=== PATIENT | male | born 1995 | race African-American/Black ===

== ENCOUNTER 2021-01-31 21:23 | Emergency (ER) | payer OTHER ==
[~2021-01-31] VITALS: Ht 195.6 cm; Wt 76.7 kg
[2021-01-31] MEDS ORDERED: CEPHALEXIN500 MG PO (22:40)
[2021-01-31] MEDS ORDERED: ZANAFLEX4 MG PO (22:40)
[2021-01-31] MEDS ORDERED: MOBIC7.5 MG PO (22:40)
[2021-01-31 23:10] VITALS: BP 144/88
== END 2021-01-31 23:10 | disposition home or self-care (01) ==
LOC: ER 21:23
DX: S01.81XA Laceration without foreign body of other part of head, initial encounter (principal); V49.49XA Driver injured in collision with other motor vehicles in traffic accident, initial encounter; Y93.89 Activity, other specified; Y92.89 Other specified places as the place of occurrence of the external cause; Y99.8 Other external cause status

== ENCOUNTER 2021-02-01 21:58 | Emergency (ER) | payer OTHER ==
[~2021-02-01] VITALS: Ht 195.6 cm; Wt 76.7 kg
[~2021-02-01 21:58] MED LIST: CEPHALEXIN500 MG PO; MOBIC7.5 MG PO; ZANAFLEX4 MG PO
[2021-02-01 23:55] VITALS: BP 127/78
== END 2021-02-01 23:56 | disposition home or self-care (01) ==
LOC: ER 21:58
DX: M62.838 Other muscle spasm (principal); R68.84 Jaw pain; M54.2 Cervicalgia; Z98.890 Other specified postprocedural states; Z79.899 Other long term (current) drug therapy

== ENCOUNTER 2021-02-14 19:36 | Emergency (ER) | payer OTHER ==
[~2021-02-14] VITALS: Ht 195.6 cm; Wt 75.8 kg
[2021-02-14 19:52] VITALS: BP 115/51
== END 2021-02-14 20:08 | disposition home or self-care (01) ==
LOC: ER 19:36
DX: S01.81XD Laceration without foreign body of other part of head, subsequent encounter (principal); X58.XXXD Exposure to other specified factors, subsequent encounter